=== PATIENT | female | born 1950 | race Caucasian/White ===

== ENCOUNTER 2017-09-14 12:59 | Emergency (ER) | payer MEDICARE, MEDICAID ==
[~2017-09-14] VITALS: Ht 170.2 cm; Wt 74.0 kg
[2017-09-14] MEDS ORDERED: MORPHINE SULFATE 4 MG/ML CPJ (NOT FOR IM USE) IV STA (13:13)
[2017-09-14 14:07] LABS: MEAN CORPUSCULAR HEMOGLOBIN 17.9 pg (28.0-32.0); MEAN PLATELET VOLUME 8.1 fl (7.4-10.4); PLATELET 200 x1000/uL (130-400); RED BLOOD CELL COUNT 3.26 mill/uL (4.2-5.4); RED CELL DISTRIBUTION WIDTH 21.1 % (11.6-14.6)
[2017-09-14 14:13] LABS: CHLORIDE 106 mEq/L (98-107); HEMATOCRIT. 20.5 % (36.0-48.0); HEMOGLOBIN. 5.8 g/dL (12.0-16.0)
[2017-09-14 14:15] LABS: PROTHROMBIN TIME 10.7 sec (9.4-11.6)
[2017-09-14] MEDS ORDERED: KETAMINE HCL 50 MG/ML 10ML IV ONE ×2 (14:30→16:00)
[2017-09-14] MEDS ORDERED: PROPOFOL 200MG/20ML VIAL IV ONE ×2 (14:30→16:00)
[2017-09-14 14:41] LABS: PLATELET ESTIMATE NORMAL
[2017-09-14] MEDS ORDERED: ONDANSETRON HCL 4MG/2ML VIAL IV ONE (16:00)
[2017-09-14 18:09] VITALS: BP 158/97
== END 2017-09-14 18:42 | disposition left against medical advice (07) ==
LOC: ER 13:02
DX: S82.61XA Displaced fracture of lateral malleolus of right fibula, initial encounter for closed fracture (principal); D64.9 Anemia, unspecified; W18.31XA Fall on same level due to stepping on an object, initial encounter; Y93.89 Activity, other specified; Y92.89 Other specified places as the place of occurrence of the external cause; Y99.9 Unspecified external cause status
CPT/HCPCS: 27818; 36415; 73600; 80053; 85025; 85610; 96374; 99152; 99285; J2270; J2405; J3490; J2704

== ENCOUNTER 2021-02-24 04:10 | Inpatient (IN) | payer MEDICARE, MEDICAID ==
[~2021-02-24] VITALS: Ht 160 cm; Wt 77.1 kg
[2021-02-24] VITALS (14 sets, daily range): BP systolic 94–115; BP diastolic 63–83
[2021-02-24 05:18] LABS: MEAN CORPUSCULAR HEMOGLOBIN 17.8 pg (28.0-32.0); MEAN CORPUSCULAR VOLUME 62.4 fL (81.0-99.0); MEAN PLATELET VOLUME 8.5 fl (7.4-10.4); PLATELET 179 x1000/uL (130-400); RED BLOOD CELL COUNT 1.58 mill/uL (4.2-5.4); RED CELL DISTRIBUTION WIDTH 22.2 % (11.6-14.6)
[2021-02-24 05:29] LABS: CHLORIDE 109 mEq/L (98-107)
[2021-02-24] MEDS ORDERED: SODIUM CHLORIDE 0.9% 1,000 ML IV ONE (05:30)
[2021-02-24 05:37] LABS: CREATINE KINASE 88 IU/L (26-192)
[2021-02-24 05:44] LABS: INR 1.2; PROTHROMBIN TIME 12.8 sec (9.6-11.0)
[2021-02-24 05:50] LABS: HEMATOCRIT. 9.9 % (36.0-48.0); HEMOGLOBIN. 2.8 g/dL (12.0-16.0)
[2021-02-24 07:57] LABS: NUCLEATED RED BLOOD CELLS 5 /100 WBC; PLATELET ESTIMATE NORMAL
[2021-02-24] MEDS ORDERED: PANTOPRAZOLE SODIUM 40 MG/VIAL IV SCH (08:15)
[2021-02-24 09:00] LABS: ETHANOL BLOOD < 10 mg/dL
[2021-02-24 10:47] LABS: CLARITY URINE CLOUDY (CLEAR); COLOR URINE DARK YELLOW (YELLOW); KETONES URINE TRACE (NEGATIVE); LEUKOCYTE ESTERASE URINE 2+ (NEGATIVE); NITRITE URINE NEGATIVE (NEGATIVE); OCCULT BLOOD URINE TRACE (NEGATIVE); PROTEIN URINE 2+ (NEGATIVE); SPECIFIC GRAVITY URINE 1.014 (1.005-1.030)
[2021-02-24 11:57] LABS: HEMATOCRIT 26.9 % (36.0-48.0); HEMOGLOBIN 8.7 g/dL (12.0-16.0)
[2021-02-24] MEDS ORDERED: PIPERACILLIN/TAZOBACTAM 3.375 G in DEXTROSE 5% WATER 50 ML IV SCH (14:15)
[2021-02-24] MEDS ORDERED: ACETAMINOPHEN 325MG TABLET PO PRN (14:15)
[2021-02-24] MEDS ORDERED: ONDANSETRON HCL 4MG/2ML INJ IV PRN (14:15)
[2021-02-24] MEDS: PIPERACILLIN/TAZOBACTAM 2.25G in DEXTROSE 5% WATER 50ML IV SCH ×2 (15:16→21:45)
[2021-02-24] MEDS: SODIUM BICARBONATE 100 MEQ in DEXTROSE 5% WATER 1,000 ML IV SCH (15:16)
[2021-02-24] MEDS ORDERED: MORPHINE SULFATE 2 MG/ML CPJ (NOT FOR IM USE) IV PRN (16:00)
[2021-02-24] MEDS ORDERED: SODIUM BICARBONATE 8.4% 1 MEQ/ML 50ML SYR IV NR (16:30)
[2021-02-24] MEDS ORDERED: LORAZEPAM 2MG/ML CPJ IV PRN (16:45)
[2021-02-24 17:29] LABS: TOTAL IRON BINDING CAPACITY 357 ug/dL (250-450)
[2021-02-25] VITALS (19 sets, daily range): BP systolic 89–109; BP diastolic 54–78
[2021-02-25 04:49] LABS: BASOPHILS % 0.1 % (0.0-2.0); EOSINOPHILS % 0.9 % (0.0-5.0); HEMATOCRIT. 26.6 % (36.0-48.0); HEMOGLOBIN. 8.6 g/dL (12.0-16.0); LYMPHOCYTES % 12.3 % (20.0-50.0); MEAN CORPUSCULAR HEMOGLOBIN 25.6 pg (28.0-32.0); MEAN CORPUSCULAR VOLUME 78.9 fL (81.0-99.0); MEAN PLATELET VOLUME 7.7 fl (7.4-10.4); MONOCYTES % 10.9 % (2.0-8.0); NEUTROPHILS % 75.8 % (40.0-76.0); PLATELET 155 x1000/uL (130-400); RED BLOOD CELL COUNT 3.37 mill/uL (4.2-5.4); RED CELL DISTRIBUTION WIDTH 25.9 % (11.6-14.6)
[2021-02-25 05:14] LABS: FERRITIN 14 ng/mL (10-291)
[2021-02-25 05:24] LABS: VITAMIN B12 SERUM 1360 pg/mL (211-911)
[2021-02-25 05:26] LABS: HEPATITIS B SURFACE ANTIGEN NEGATIVE
[2021-02-25] MEDS: PIPERACILLIN/TAZOBACTAM 2.25G in DEXTROSE 5% WATER 50ML IV SCH ×3 (05:28→22:15)
[2021-02-25 05:55] LABS: HEPATITIS A AB IGM NEGATIVE (NEGATIVE)
[2021-02-25] MEDS: THIAMINE HCL 100MG TABLET PO SCH (08:48)
[2021-02-25] MEDS: PANTOPRAZOLE SODIUM 40 MG/VIAL IV SCH (08:48)
[2021-02-25] MEDS ORDERED: SENNOSIDES/DOCUSATE SOD 8.6/50MG TABLET PO PRN (10:00)
[2021-02-25] MEDS ORDERED: PERMETHRIN 5% CREAM 60GM TOP NR (10:30)
[2021-02-25] MEDS: POLYETHYLENE GLYCOL 3350 (17GM) 1 DOSE PACK PO SCH (10:53)
[2021-02-25] MEDS: SODIUM BICARBONATE 100 MEQ in DEXTROSE 5% WATER 1,000 ML IV SCH ×2 (10:53→14:29)
[2021-02-25] MEDS: IRON SUCROSE COMPLEX 100 MG/5 ML ML IV SCH (10:53)
[2021-02-25] MEDS: DOCUSATE SODIUM 100MG CAPSULE PO SCH (17:40)
[2021-02-26] VITALS: BP 99/75
[2021-02-26] MEDS: SODIUM BICARBONATE 100 MEQ in DEXTROSE 5% WATER 1,000 ML IV SCH (00:13)
[2021-02-26 04:00] VITALS: BP 107/74
[2021-02-26] MEDS: PIPERACILLIN/TAZOBACTAM 2.25G in DEXTROSE 5% WATER 50ML IV SCH ×3 (05:28→21:18)
[2021-02-26 06:37] LABS: BASOPHILS % 0.3 % (0.0-2.0); EOSINOPHILS % 2.3 % (0.0-5.0); HEMATOCRIT. 30.3 % (36.0-48.0); HEMOGLOBIN. 9.9 g/dL (12.0-16.0); LYMPHOCYTES % 12.6 % (20.0-50.0); MEAN CORPUSCULAR HEMOGLOBIN 25.6 pg (28.0-32.0); MEAN CORPUSCULAR VOLUME 78.3 fL (81.0-99.0); MEAN PLATELET VOLUME 8.3 fl (7.4-10.4); MONOCYTES % 10.8 % (2.0-8.0); PLATELET 142 x1000/uL (130-400); RED BLOOD CELL COUNT 3.87 mill/uL (4.2-5.4); RED CELL DISTRIBUTION WIDTH 26.4 % (11.6-14.6)
[2021-02-26] MEDS ORDERED: POTASSIUM CHLORIDE 20MEQ TABLET SR PO NR ×2 (06:45→12:00)
[2021-02-26 08:00] VITALS: BP 125/80
[2021-02-26] MEDS: DOCUSATE SODIUM 100MG CAPSULE PO SCH ×3 (09:00→17:00)
[2021-02-26] MEDS: IRON SUCROSE COMPLEX 100 MG/5 ML ML IV SCH (09:18)
[2021-02-26] MEDS: THIAMINE HCL 100MG TABLET PO SCH (09:18)
[2021-02-26] MEDS: POLYETHYLENE GLYCOL 3350 (17GM) 1 DOSE PACK PO SCH (09:18)
[2021-02-26] MEDS: PANTOPRAZOLE SODIUM 40 MG/VIAL IV SCH (09:18)
[2021-02-26] MEDS: SODIUM CHLORIDE 0.45% 1,000 ML IV SCH (10:28)
[2021-02-26] MEDS: CITRIC ACID/SODIUM CITRATE SOLN 15ML UDC PO SCH ×4 (10:28→17:02)
[2021-02-26 12:00] VITALS: BP 99/77
[2021-02-26 16:00] VITALS: BP 105/76
[2021-02-26 20:00] VITALS: BP 93/62
[2021-02-27] VITALS: BP 100/67
[2021-02-27] MEDS: SODIUM CHLORIDE 0.45% 1,000 ML IV SCH (01:55)
[2021-02-27 04:00] VITALS: BP 108/70
[2021-02-27] MEDS: PIPERACILLIN/TAZOBACTAM 2.25G in DEXTROSE 5% WATER 50ML IV SCH ×3 (05:32→22:02)
[2021-02-27 06:08] LABS: BASOPHILS % 0.3 % (0.0-2.0); EOSINOPHILS % 2.8 % (0.0-5.0); HEMATOCRIT. 29.7 % (36.0-48.0); HEMOGLOBIN. 9.4 g/dL (12.0-16.0); LYMPHOCYTES % 16.3 % (20.0-50.0); MEAN CORPUSCULAR VOLUME 79.2 fL (81.0-99.0); MEAN PLATELET VOLUME 8.5 fl (7.4-10.4); MONOCYTES % 11.3 % (2.0-8.0); NEUTROPHILS % 69.3 % (40.0-76.0); PLATELET 137 x1000/uL (130-400); RED BLOOD CELL COUNT 3.74 mill/uL (4.2-5.4); RED CELL DISTRIBUTION WIDTH 26.9 % (11.6-14.6)
[2021-02-27 08:00] VITALS: BP 113/72
[2021-02-27] MEDS: DOCUSATE SODIUM 100MG CAPSULE PO SCH ×3 (09:00→17:00)
[2021-02-27] MEDS: POLYETHYLENE GLYCOL 3350 (17GM) 1 DOSE PACK PO SCH ×2 (09:00→09:45)
[2021-02-27] MEDS: IRON SUCROSE COMPLEX 100 MG/5 ML ML IV SCH (09:45)
[2021-02-27] MEDS: PANTOPRAZOLE SODIUM 40 MG/VIAL IV SCH (09:45)
[2021-02-27] MEDS: THIAMINE HCL 100MG TABLET PO SCH (09:48)
[2021-02-27] MEDS: CITRIC ACID/SODIUM CITRATE SOLN 30ML UDC PO SCH ×4 (09:49→20:36)
[2021-02-27 12:00] VITALS: BP 95/62
[2021-02-27 16:00] VITALS: BP 104/73
[2021-02-27 20:00] VITALS: BP 98/62
[2021-02-28] VITALS: BP 101/74
[2021-02-28 04:00] VITALS: BP 86/57
[2021-02-28] MEDS: PIPERACILLIN/TAZOBACTAM 2.25G in DEXTROSE 5% WATER 50ML IV SCH ×2 (05:19→14:19)
[2021-02-28 06:47] LABS: BASOPHILS % 0.6 % (0.0-2.0); EOSINOPHILS % 3.2 % (0.0-5.0); HEMATOCRIT. 29.2 % (36.0-48.0); HEMOGLOBIN. 9.4 g/dL (12.0-16.0); LYMPHOCYTES % 16.7 % (20.0-50.0); MEAN CORPUSCULAR HEMOGLOBIN 25.7 pg (28.0-32.0); MEAN CORPUSCULAR VOLUME 79.9 fL (81.0-99.0); MEAN PLATELET VOLUME 8.7 fl (7.4-10.4); NEUTROPHILS % 66.5 % (40.0-76.0); PLATELET 111 x1000/uL (130-400); RED BLOOD CELL COUNT 3.66 mill/uL (4.2-5.4)
[2021-02-28] MEDS: CITRIC ACID/SODIUM CITRATE SOLN 30ML UDC PO SCH ×3 (09:00→17:00)
[2021-02-28] MEDS: DOCUSATE SODIUM 100MG CAPSULE PO SCH ×2 (09:00→17:00)
[2021-02-28] MEDS: IRON SUCROSE COMPLEX 100 MG/5 ML ML IV SCH (09:22)
[2021-02-28] MEDS: POLYETHYLENE GLYCOL 3350 (17GM) 1 DOSE PACK PO SCH (09:22)
[2021-02-28] MEDS: PANTOPRAZOLE SODIUM 40 MG/VIAL IV SCH (09:23)
[2021-02-28] MEDS: THIAMINE HCL 100MG TABLET PO SCH (09:23)
[2021-02-28 12:00] VITALS: BP 102/80
[2021-02-28 16:00] VITALS: BP 108/77
[2021-02-28 20:00] VITALS: BP 116/74
[2021-02-28] MEDS: PIPERACILLIN/TAZOBACTAM 3.375G in DEXT 5% WATER 50ML IV SCH (20:22)
[2021-03-01] VITALS: BP 104/66
[2021-03-01] MEDS: PIPERACILLIN/TAZOBACTAM 3.375G in DEXT 5% WATER 50ML IV SCH ×3 (02:36→16:07)
[2021-03-01 04:00] VITALS: BP 96/71
[2021-03-01] MEDS: CITRIC ACID/SODIUM CITRATE SOLN 30ML UDC PO SCH ×2 (09:00→13:00)
[2021-03-01] MEDS: POLYETHYLENE GLYCOL 3350 (17GM) 1 DOSE PACK PO SCH (09:00)
[2021-03-01] MEDS: DOCUSATE SODIUM 100MG CAPSULE PO SCH (09:00)
[2021-03-01] MEDS ORDERED: DIGOXIN 500MCG/2ML AMP IV NR (09:15)
[2021-03-01] MEDS ORDERED: METOPROLOL TARTRATE 25MG TABLET PO SCH (10:00)
[2021-03-01] MEDS: PANTOPRAZOLE SODIUM 40 MG/VIAL IV SCH (10:08)
[2021-03-01] MEDS: IRON SUCROSE COMPLEX 100 MG/5 ML ML IV SCH (10:08)
[2021-03-01] MEDS: THIAMINE HCL 100MG TABLET PO SCH (10:11)
[2021-03-01] MEDS ORDERED: METO25TA6 PO (14:59)
[2021-03-01] MEDS ORDERED: THIA100T72 PO (14:59)
[2021-03-01] MEDS ORDERED: OMEP20TA2 MT (14:59)
[2021-03-01] MEDS ORDERED: DOCU-150 PO (14:59)
[2021-03-01] MEDS ORDERED: FERR325T23 MT (14:59)
[2021-03-01 16:15] LABS: LDL CHOLESTEROL 30 mg/dL (5-100)
[2021-03-01 16:17] LABS: HDL CHOLESTEROL 32 mg/dL (40-59)
[2021-03-01 16:57] VITALS: BP 114/83
== END 2021-03-01 17:25 | disposition home or self-care (01) | DRG 871 ==
LOC: ER 04:10 → MICUSO 06:53 → ENRESERV 08:19 → CANRESERV 08:19 → EDBEDREQSVC 09:35 → ENRESERV 11:14 → 5WST 02-25 17:19
PROVIDERS: ADMIT Internal Medicine; ATTEND Internal Medicine
PROC: 30233N1 Transfusion of Nonautologous Red Blood Cells into Peripheral Vein, Percutaneous Approach (ICD-10-PCS; principal; 2021-02-24)
DX: A41.9 Sepsis, unspecified organism (principal); K85.90 Acute pancreatitis without necrosis or infection, unspecified; N17.0 Acute kidney failure with tubular necrosis; E44.1 Mild protein-calorie malnutrition; E87.2 Acidosis; N39.0 Urinary tract infection, site not specified; S32.020A Wedge compression fracture of second lumbar vertebra, initial encounter for closed fracture; R18.8 Other ascites; J90 Pleural effusion, not elsewhere classified; I48.19 Other persistent atrial fibrillation; J44.9 Chronic obstructive pulmonary disease, unspecified; D50.9 Iron deficiency anemia, unspecified; K52.9 Noninfective gastroenteritis and colitis, unspecified; E87.6 Hypokalemia; E87.8 Other disorders of electrolyte and fluid balance, not elsewhere classified; F17.210 Nicotine dependence, cigarettes, uncomplicated; I51.7 Cardiomegaly; K21.9 Gastro-esophageal reflux disease without esophagitis; K44.9 Diaphragmatic hernia without obstruction or gangrene; M48.061 Spinal stenosis, lumbar region without neurogenic claudication; K76.9 Liver disease, unspecified; F10.10 Alcohol abuse, uncomplicated; Y90.0 Blood alcohol level of less than 20 mg/100 ml; G89.29 Other chronic pain; M54.5 Low back pain; Z60.2 Problems related to living alone; L89.156 Pressure-induced deep tissue damage of sacral region; B96.89 Other specified bacterial agents as the cause of diseases classified elsewhere; Z71.41 Alcohol abuse counseling and surveillance of alcoholic; Z82.49 Family history of ischemic heart disease and other diseases of the circulatory system; Z68.30 Body mass index [BMI] 30.0-30.9, adult; Z79.899 Other long term (current) drug therapy; Z71.6 Tobacco abuse counseling
CPT/HCPCS: 36415; 71045; 74176; 80048; 80053; 80061; 80307; 80320; 80329; 81003; 82040; 82140; 82150; 82247; 82248; 82270; 82550; 82607; 82728; 82746; 83540; 83550; 83880; 84134; 84484; 85014; 85018; 85025; 85044; 86705; 86709; 86803; 86850; 86900; 86920; 87077; 87186; 87340; 93005; 93306; 97116; 97162; 99291; C1893; C9113; J1160; J2270; J2543; J3490; J7030; J7040; J7060; J7070; P9016; G0480